=== PATIENT | female | born 1990 | race Caucasian/White ===

== ENCOUNTER 2016-12-06 18:02 | Emergency (ER) | payer MEDICAID ==
[~2016-12-06] VITALS: Ht 165.1 cm; Wt 59.0 kg
[2016-12-06 19:17] LABS: URINE APPEARANCE CLEAR; URINE BILIRUBIN NEG (NEG); URINE BLOOD NEG (NEG); URINE COLOR YELLOW; URINE GLUCOSE NEG (NORM); URINE KETONE NEG (NEG); URINE LEUKOCYTE ESTERASE NEG (NEG); URINE NITRATE NEG (NEG); URINE PROTEIN NEG (NEG); URINE UROBILINOGEN 0.2 MG/DL (NORM)
[2016-12-06 19:18] LABS: MICRO INDICATED? NO; URINE SOURCE CATH
[2016-12-08 20:11] LABS: CHLAMYDIA TRACH Not Detected (Not Detected); N GONOR Not Detected (Not Detected)
== END 2016-12-06 20:13 | disposition home or self-care (01) ==
LOC: SED 18:02
PROVIDERS: Physician Assistant
DX: N93.8 Other specified abnormal uterine and vaginal bleeding (principal); R10.32 Left lower quadrant pain; R10.2 Pelvic and perineal pain; K04.7 Periapical abscess without sinus; J02.9 Acute pharyngitis, unspecified; F17.200 Nicotine dependence, unspecified, uncomplicated; Z98.51 Tubal ligation status; Z91.018 Allergy to other foods
CPT/HCPCS: 81003; 84703; 87210; 87491; 87591; 87651; 87808; 87905; 99284

== ENCOUNTER 2016-12-09 18:28 | Emergency (ER) | payer MEDICAID ==
[2016-12-09] MEDS ORDERED: AMOXICILLIN (18:38)
[2016-12-09 19:16] LABS: URINE APPEARANCE CLEAR; URINE BILIRUBIN NEG (NEG); URINE BLOOD NEG (NEG); URINE COLOR YELLOW; URINE GLUCOSE NEG (NORM); URINE KETONE NEG (NEG); URINE LEUKOCYTE ESTERASE NEG (NEG); URINE NITRATE NEG (NEG); URINE PH 6.5 (5-8); URINE PROTEIN NEG (NEG); URINE SOURCE CLEAN CATCH; URINE SPECIFIC GRAVITY <=1.005 (1.003-1.035); URINE UROBILINOGEN 0.2 MG/DL (NORM)
[2016-12-09 19:19] LABS: MICRO INDICATED? NO
== END 2016-12-09 19:30 | disposition home or self-care (01) ==
LOC: SED 18:28
PROVIDERS: Nurse Practitioner
DX: R11.10 Vomiting, unspecified (principal); F17.210 Nicotine dependence, cigarettes, uncomplicated; Z98.51 Tubal ligation status
CPT/HCPCS: 81003; 84703; 99284